=== PATIENT | male | born 1965 | race Caucasian/White ===

== ENCOUNTER 2018-03-02 01:13 | Emergency (ER) | payer OTHER ==
[~2018-03-02] VITALS: Ht 182.9 cm; Wt 74.8 kg
[2018-03-02 01:20] VITALS: BP 183/108
[2018-03-02] MEDS ORDERED: LATUDA60 MG PO (01:26)
[2018-03-02] MEDS ORDERED: [UNRECOGNIZED DRUG - OTHER] PO (01:27)
== END 2018-03-02 03:23 | disposition home or self-care (01) ==
LOC: ER 01:13
DX: F41.9 Anxiety disorder, unspecified (principal); I10 Essential (primary) hypertension; F43.10 Post-traumatic stress disorder, unspecified; F60.3 Borderline personality disorder; Z88.0 Allergy status to penicillin; Z88.8 Allergy status to other drugs, medicaments and biological substances